=== PATIENT | male | born 1960 | race Caucasian/White ===

== ENCOUNTER 2018-01-20 06:31 | Day surgery (SDC) | payer OTHER ==
--- NOTE | 2018-01-19 13:55 | RAD REPORT ---
EXAM DESCRIPTION: RAD - Chest Pa And Lat (2 Views) - 01/19/2018 1:49 pm CLINICAL HISTORY: Coronary artery disease. COMPARISON: 04/08/2014 FINDINGS: The lungs are clear. The heart is normal in size. Right posterolateral rib fractures noted , old. IMPRESSION: No acute or concerning finding suspected.
[2018-01-19 14:42] LABS: Absolute Lymphocytes (CBC) 1.8 K/uL (0.7-4.9); Absolute Monocytes 0.5 K/uL (0.1-1.3); Absolute Neutrophil 2.9 K/uL (1.8-8.0); Basophils % 0.7 % (0-1.3); Eosinophils % 4.3 % (0-4.4); Hematocrit 46.1 % (39.6-49.0); Lymphocytes % 33.2 % (15.3-44.8); MCH 29.8 pg (27.0-35.0); MCV 87.4 fL (80-100); MPV 9.4 fL (7.6-11.3); Monocytes % 8.8 % (3.3-12.3); RBC Red Blood Cell Count 5.27 M/uL (4.33-5.43)
[2018-01-19 15:14] LABS: BUN Blood Urea Nitrogen 14 mg/dL (6-20); Bicarbonate 25 mEq/L (21-31); Glucose Level 373 mg/dL (65-120); Potassium 4.4 mEq/L (3.6-5.0); Sodium Level 133 mEq/L (135-145)
[~2018-01-20 06:31] MED LIST: ATROPINE SULF 1 MG/10 ML SYR IV ONE; HEPA 1000U/500MLS 1,000 UNIT/500 ML BAG IV ONE; NA CHLORIDE 0.9% 0 ML ONE; NA CHLORIDE 0.9% 500 ML ONE
[2018-01-20] MEDS ORDERED: LIDOCAINE 1% 20 ML MDV ONE (07:17)
[2018-01-20] MEDS ORDERED: MIDAZOLAM HCL 2 MG/2 ML INJ ONE (07:32)
[2018-01-20] MEDS ORDERED: FENTANYL CITR 100 MCG/2 ML ONE (07:33)
[2018-01-20 09:20] VITALS: O2SAT 95
[2018-01-20 10:24] VITALS: BP 141/86
[2018-01-20 10:25] VITALS: TEMP 98.7
--- NOTE | 2018-01-21 02:20 | OP ---
Date of Procedure: 01/20/2018 Surgeon: Juwan Kearney MD [employer] Machine Service Repairer: Kim Lee. Procedure: Left heart catheterization, selective coronary arteriogram. Indication: Unstable angina. Procedure Technique: Mr. Dozier is a 57-year-old white male with history of diabetes, dyslipidemia, hypertension, and obesity, who came in with unstable angina, set up for a heart catheterization today , brought in as an outpatient to the pathology laboratory director. He was prepped and draped in the routine sterile fash ion. He was given 2 mg of Versed for IV sedation. A 6-Tanzanian sheath was introduced in the right com mon femoral artery and Angio-Seal was used to close the case. Six-Tanz[place] catheters, Belén left and right, were used to cannulate the left main and the right main respectively. The patient had about a 20-30% stenosis in the left main artery. The circumflex was diffusely diseased with plaquing, very large vessel. The LAD was also a large vessel with ectasia and about 20-30% proximal LAD stenosis. The RCA was very large, very ecstatic with about 30-40% proximal RCA and diffuse plaquing distally. There were no complications. Estimated Blood Loss: 5 cc. Total Conscious Sedation: 30 minutes. Final Assessment: Moderate coronary artery disease. Plan: Plan is for medical therapy. We will increase his statin to maximum dosages. He will be watc hed for 2 hours for bedrest and then go home. Follow up with me in the next 2 weeks. Applications Support Lead: Juwan Kearney MD. ROCCO/YAHAIRAL Voice ID: [id number] Report ID: [id number]
== END 2018-01-20 10:24 | disposition home or self-care (01) ==
LOC: CCL 06:31
PROC: B201YZZ Plain Radiography of Multiple Coronary Arteries using Other Contrast (ICD-10-PCS; principal; 2018-01-20)
DX: I25.110 Atherosclerotic heart disease of native coronary artery with unstable angina pectoris (principal); I10 Essential (primary) hypertension; R00.2 Palpitations; E78.2 Mixed hyperlipidemia; E11.9 Type 2 diabetes mellitus without complications; E66.9 Obesity, unspecified
CPT/HCPCS: 36415; 71046; 80048; 82962; 85025; 85610; 85730; 93454; C1760; C1893; J0583; J2250; J3010